=== PATIENT | female | born 1955 | race Caucasian/White ===

== ENCOUNTER 2017-03-05 08:07 | Emergency (ER) | payer OTHER ==
[~2017-03-05] VITALS: Ht 160 cm; Wt 72.0 kg
[~2017-03-05 08:07] MED LIST: MECL12.574 PO
[2017-03-05 08:11] VITALS: Ht 160 cm; Wt 72.0 kg
[2017-03-05] MEDS ORDERED: ONDANSETRON 4 MG INJ IV STA (08:22)
[2017-03-05] MEDS ORDERED: FAMOTIDINE 20 MG INJ IV STA (08:22)
[2017-03-05] MEDS ORDERED: SOD CHLORIDE 0.9% 1,000 ML IV STA (08:22)
[2017-03-05 09:05] LABS: ADD SCAN DIFF NO
[2017-03-05 09:08] LABS: BASOPHILS % 0.2 % (0.0-2.0); EOSINOPHILS # 0.1 10^3/ul (0.0-0.5); HEMOGLOBIN 15.1 g/dl (12.0-16.0); LYMPHOCYTES # 2.1 10^3/ul (0.8-2.9); LYMPHOCYTES % 21.9 % (15.0-51.0); MEAN CORPUSCULAR HEMOGLOBIN 30.3 pg (29.0-33.0); MEAN CORPUSCULAR HGB CONC 32.8 g/dl (32.0-37.0); MEAN CORPUSCULAR VOLUME 92.2 fl (82.0-101.0); MEAN PLATELET VOLUME 10.2 fl (7.4-10.4); MONOCYTE # 0.9 10^3/ul (0.3-0.9); MONOCYTES % 9.3 % (0.0-11.0); NEUTROPHIL # 6.3 10^3/ul (1.6-7.5); NEUTROPHILS % 67.3 % (39.0-77.0); PLATELET COUNT 180 10^3/UL (140-415); RED BLOOD COUNT 4.99 10^6/ul (4.20-5.40); RED CELL DISTRIBUTION WIDTH 12.5 % (11.5-14.5); WHITE BLOOD COUNT 9.4 10^3/ul (4.8-10.8)
[2017-03-05 09:10] LABS: ADD UMIC YES; URINE BILIRUBIN (Dip) NEGATIVE (NEGATIVE); URINE BLOOD (Dip) 2+ (NEGATIVE); URINE COLOR YELLOW (YELLOW); URINE KETONES (Dip) NEGATIVE (NEGATIVE); URINE LEUKOCYTE ESTERASE (Dip) NEGATIVE (NEGATIVE); URINE NITRITE (Dip) NEGATIVE (NEGATIVE); URINE TOTAL PROTEIN (Dip) 1+ (NEGATIVE); URINE UROBILINOGEN (Dip) 0.2 E.U./dL (0.1-1.0)
[2017-03-05 09:15] LABS: ALBUMIN 3.9 g/dl (3.3-4.9); CHLORIDE 99 mmol/L (97-110)
[2017-03-05 09:16] LABS: POTASSIUM 3.3 mmol/L (3.5-5.1); SODIUM 141 mmol/L (135-144)
[2017-03-05 09:18] LABS: ALANINE AMINOTRANSFERASE 36 IU/L (13-69); ALBUMIN/GLOBULIN RATIO 1.02; ALKALINE PHOSPHATASE 82 IU/L (42-121); ANION GAP 17 (8-16); ASPARTATE AMINO TRANSFERASE 25 IU/L (15-46); BILIRUBIN,INDIRECT 1.1 mg/dl (0-1.1); BILIRUBIN,TOTAL 1.1 mg/dl (0.2-1.3); BLOOD UREA NITROGEN 10 mg/dl (7-20); CARBON DIOXIDE 28 mmol/L (21-31); CREATININE 0.58 mg/dl (0.44-1.00); GLUCOSE 178 mg/dl (70-220); TOTAL PROTEIN 7.7 g/dl (6.1-8.1)
[2017-03-05 09:19] LABS: CALCIUM 8.1 mg/dl (8.4-10.2)
[2017-03-05 09:21] LABS: BACTERIA,URINE MANY; MUCUS,URINE MANY
--- NOTE | 2017-03-05 09:22 | RADRPT ---
PROCEDURE: CT Abdomen and Pelvis without contrast. CLINICAL INDICATION: Abdominal pain with nausea and vomiting. TECHNIQUE: CT scan of the abdomen and pelvis without contrast was performed on a multidetector hig h-resolution CT scanner. The patient was scanned without intravenous contrast. Coronal and sagittal reformatted images were obtained from the axial source images. Images were reviewed on a high-resol Pick1 PACS workstation. The total exam CTDI equals 10.75 mGy and the total exam DLP equals 606.76 mG y-cm. One or more of the following dose reduction techniques were used: Automated exposure control. Adjustment of the mA and/or kV according to patient size. Use of iterative reconstruction technique. COMPARISON: None FINDINGS: CT abdomen: The lung bases are clear. The heart size is normal, without pericardial thickening or effusion. Th e liver is normal in size and density without focal mass or intrahepatic biliary dilatation. The sp tyron is normal in size and homogeneous in density. The stomach is partially collapsed, but is gross ly unremarkable. The pancreas as visualized is normal. The gallbladder is surgically absent. There is no evidence for biliary dilatation. The adrenal glands are symmetric and normal. The kidneys a re symmetrically unremarkable as well. No renal calculus or obstructive uropathy or mass lesion is seen. The aorta is of normal caliber. Scattered aortoiliac vascular calcifications are present. There is n o retroperitoneal lymphadenopathy. The angeli hepatis region is clear. The bowel and mesentery, as visualized, are equally unremarkable. There is small hiatal hernia. CT pelvis: The small bowel loops situated within the pelvis are unremarkable. There is normal appendix. The pe lvic organs are normal. The pelvic sidewalls and inguinal regions are clear. The sigmoid colon and rectum are unremarkable. No mass, lymphadenopathy, or free fluid is seen. No acute inflammation i s seen. The surrounding osseous structures are remarkable for degenerative spondylosis of the spine . No osteolytic or osteoblastic lesion is detected. IMPRESSION: 1. No mass, lymphadenopathy, or focal acute inflammatory process is identified. 2. Normal appendix. 3. Status post cholecystectomy. No biliary ductal dilatation. 4. Scattered aortoiliac atherosclerosis. RPTAT: BB .Bisi Morales MD, MD Date Time Electronically viewed and signed by .Bisi Morales MD, on 03/05/2017 09:22 .O/
[2017-03-05] MEDS ORDERED: POTASSIUM CHLORIDE (SR) 20 MEQ TAB PO STA (09:28)
[2017-03-05 09:32] LABS: TROPONIN-I < 0.012 ng/ml (0.00-0.12)
--- NOTE | 2017-03-05 09:37 | ERD ---
ER Documentation Chief Complaint Date/Time DATE: 03/05/17 TIME: 09:34 Chief Complaint CAME IN VIA INTAKE DUE TO ABDOMINAL PAIN WITH DIARRHEA HPI This is a 61-year-old female presents to the emergency room for evaluation of abdominal cramping, and diarrhea for the past 24 hours. The patient states that her cramping started yesterday as well as diarrhea which she describes as watery. The patient denies any blood in her stool. She denies any recent travel, came to the ER for evaluation. She denies any aggravating or relieving factors for her symptoms ROS All systems reviewed and are negative except as per history of present illness. Medications Home Meds Active Scripts Meclizine Hcl* (Antivert*) 12.5 Mg Tab, 12.5 MG PO Q6H Y for dizziness, #10 TAB Prov:FLORI SHRESTHA MD 03/01/16 Allergies Allergies: Coded Allergies: sulfamethoxazole (Verified Allergy, Unknown, vomiting, 03/01/16) trimethoprim (Verified Allergy, Unknown, vomiting, 03/01/16) PMhx/Soc History of Surgery: Yes (GALLBLADDER, TUBAL LIGATION) Anesthesia Reaction: No Hx Neurological Disorder: No Hx Respiratory Disorders: No Hx Cardiac Disorders: Yes (HTN) Hx Psychiatric Problems: No Hx Miscellaneous Medical Probl: Yes (DIABETES, HIGH CHOLESTEROL) Hx Alcohol Use: No Hx Substance Use: No Hx Tobacco Use: Yes (1/2 PACK/DAY) Smoking Status: Current every day smoker Physical Exam Vitals Vital Signs Date Time Temp Pulse Resp B/P Pulse Ox O2 Delivery O2 Flow Rate FiO2 03/05/17 08:11 98.4 111 18 132/64 96 Physical Exam Const: No acute distress Head: Atraumatic Eyes: Normal Conjunctiva ENT: Normal External Ears, Nose and Mouth. Neck: Full range of motion..~ No meningismus. Resp: Clear to auscultation bilaterally Cardio: Regular rate and rhythm, no murmurs Abd: Soft, non tender, non distended. Normal bowel sounds Skin: No petechiae or rashes Back: No midline or flank tenderness Ext: No cyanosis, or edema Neur: Awake and alert Psych: Normal Mood and Affect Result Diagram: 03/05/17 0845 03/05/17 0845 Results 24 hrs Laboratory Tests Test 03/05/17 08:45 White Blood Count 9.410^3/ul Red Blood Count 4.9910^6/ul Hemoglobin 15.1g/dl Hematocrit 46.0% Mean Corpuscular Volume 92.2fl Mean Corpuscular Hemoglobin 30.3pg Mean Corpuscular Hemoglobin Concent 32.8g/dl Red Cell Distribution Width 12.5% Platelet Count 27246^3/UL Mean Platelet Volume 10.2fl Neutrophils % 67.3% Lymphocytes % 21.9% Monocytes % 9.3% Eosinophils % 1.0% Basophils % 0.2% Nucleated Red Blood Cells % 0.0/100WBC Neutrophils # 6.310^3/ul Lymphocytes # 2.110^3/ul Monocytes # 0.910^3/ul Eosinophils # 0.110^3/ul Basophils # 0.010^3/ul Nucleated Red Blood Cells # 0.010^3/ul Urine Color YELLOW Urine Clarity CLEAR Urine pH 6.0 Urine Specific Norton >=1.030 Urine Ketones NEGATIVE Urine Nitrite NEGATIVE Urine Bilirubin NEGATIVE Urine Urobilinogen 0.2 E.U./dL Urine Leukocyte Esterase NEGATIVE Urine Microscopic RBC 10-25/HPF Urine Microscopic WBC 5-10/HPF Urine Epithelial Cells FEW Urine Bacteria MANY Urine Mucus MANY Urine Hemoglobin 2+ Urine Glucose 0.1%% Urine Total Protein 1+ Sodium Level 141mmol/L Potassium Level 3.3mmol/L Chloride Level 99mmol/L Carbon Dioxide Level 28mmol/L Anion Gap 17 Blood Urea Nitrogen 10mg/dl Creatinine 0.58mg/dl Glucose Level 178mg/dl Calcium Level 8.1mg/dl Total Bilirubin 1.1mg/dl Direct Bilirubin 0.00mg/dl Indirect Bilirubin 1.1mg/dl Aspartate Amino Transf (AST/SGOT) 25IU/L Alanine Aminotransferase (ALT/SGPT) 36IU/L Alkaline Phosphatase 82IU/L Troponin I < 0.012ng/ml Total Protein 7.7g/dl Albumin 3.9g/dl Globulin 3.80g/dl Albumin/Globulin Ratio 1.02 Lipase 101U/L Current Medications Medications (Trade) Dose Ordered Sig/Stefany Route PRN Reason Start Time Stop Time Status Last Admin Dose Admin Sodium Chloride (NS) 1,000 ml @ 1,000 mls/hr Q1H STAT IV 03/05/17 08:22 03/05/17 09:21 DC 03/05/17 08:54 Ondansetron HCl (Zofran Inj) 4 mg ONCE STAT IV 03/05/17 08:22 03/05/17 08:25 DC 03/05/17 08:54 Famotidine (Pepcid Iv) 20 mg ONCE STAT IV 03/05/17 08:22 03/05/17 08:25 DC 03/05/17 08:54 Potassium Chloride (Klor-Con 20) 20 meq ONCE STAT PO 03/05/17 09:28 03/05/17 09:32 DC Procedures/MDM CT abdomen pelvis without: 1. No mass, lymphadenopathy, or focal acute inflammatory process is identified. 2. Normal appendix. 3. Status post cholecystectomy. No biliary ductal dilatation. 4. Scattered aortoiliac atherosclerosis. This 61-year-old female presents to the emergency room for evaluation of abdominal cramping and diarrhea for 1 days duration. When I evaluated this patient showed no peritoneal signs. She was in no acute distress. Lab work was obtained which shows a slightly decreased potassium. The patient was given p.o. potassium and tolerated p.o. challenge. CT of the abdomen and pelvis does not reveal any intra-abdominal pathology. This patient did receive Zofran and Pepcid and 1 L of fluid. I advised her that she is suffering from diarrhea and abdominal cramping is common with diarrhea. The patient states she is feeling better at this time and will be discharged home with instructions to follow-up with her primary care physician. Differential diagnoses entertained was broad with potential high acuity. Patient has been evaluated for appendicitis, cholecystitis, and other high risk medical and surgical causes of abdominal pain. Ultimately the patient's evaluation is nondiagnostic. Based on the patient's lack of risk factors, as well as the patient's clinical, laboratory, and imaging data, the patient appears to be low risk for these high risk causes of abdominal pain. Departure Diagnosis: Primary Impression: Diarrhea Additional Impressions: Abdominal cramping Hypokalemia Condition: Stable JULIA LEAL DO Mar 05, 2017 09:37
[2017-03-05 09:46] VITALS: BP 113/65; PULSE 65; RESP 17; TEMP 97
== END 2017-03-05 12:10 | disposition home or self-care (01) ==
LOC: E/R 08:07
DX: R19.7 Diarrhea, unspecified (principal); E87.6 Hypokalemia; I10 Essential (primary) hypertension; E11.9 Type 2 diabetes mellitus without complications; F17.210 Nicotine dependence, cigarettes, uncomplicated
CPT/HCPCS: 36415; 74176; 80053; 81001; 83690; 84484; 85025; 96374; 96375; J2405; J7030; Z7502; Z7610; 81003

== ENCOUNTER 2018-10-11 08:43 | Day surgery (SDC) | END 2018-10-11 18:25 | disposition home or self-care (01) ==

== ENCOUNTER 2018-10-25 18:11 | Emergency (ER) | payer MEDICARE, OTHER ==
[~2018-10-25] VITALS: Wt 68.9 kg
[~2018-10-25 18:11] MED LIST changes: +ATOR-2 PO; +CARV25TA79 PO; -MECL12.574 PO; +METF500T24 PO
[2018-10-25] MEDS ORDERED: HYDROCODONE/APAP (5/325) TAB PO ONE (21:00)
[2018-10-25 22:06] VITALS: BP 136/77; PULSE 77; RESP 18
--- NOTE | 2018-11-05 09:18 | ERD ---
ER Documentation Chief Complaint Chief Complaint bib self due to right hand pain s/p dressing change this afternoon HPI 53-year-old female status post ORIF repair for the a fracture in the right hand states that she just had surgery with couple days prior to being seen, patient had pins placed in her hand and the Have failed off. Patient presents for evaluation. States that her pain is moderate in severity ROS All systems reviewed and are negative except as per history of present illness. Medications Home Meds Reported Medications Atorvastatin* (Atorvastatin*) 80 Mg Tablet, 80 MG PO QHS, #30 TAB 10/11/18 Carvedilol* (Carvedilol*) 25 Mg Tablet, 25 MG PO BID, #60 TAB 10/11/18 Metformin Hcl* (Metformin Hcl*) 500 Mg Tablet, 500 MG PO WITH BREAKFAST DINNE, #60 TAB 10/11/18 Allergies Allergies: Coded Allergies: ibuprofen (Verified Allergy, Unknown, RASHES, 10/11/18) sulfamethoxazole (Verified Allergy, Unknown, vomiting, 10/11/18) trimethoprim (Verified Allergy, Unknown, vomiting, 10/11/18) PMhx/Soc History of Surgery: Yes (keila, tubal ligation) Anesthesia Reaction: No Hx Neurological Disorder: No Hx Respiratory Disorders: No Hx Cardiac Disorders: Yes (htn,high chol) Hx Psychiatric Problems: No Hx Miscellaneous Medical Probl: No Hx Alcohol Use: No Hx Substance Use: No Hx Tobacco Use: Yes Smoking Status: Former smoker Physical Exam Vitals Reviewed solving within normal limits l Physical Exam Const: No acute distress Head: Atraumatic Eyes: Normal Conjunctiva ENT: Normal External Ears, Nose and Mouth. Neck: Full range of motion. No meningismus. Resp: Clear to auscultation bilaterally Cardio: Regular rate and rhythm, no murmurs Abd: Soft, non tender, non distended. Normal bowel sounds Skin: No petechiae or rashes Back: No midline or flank tenderness Ext: No cyanosis, or edema Neur: Awake and alert Psych: Normal Mood and Affect Results 24 hrs Current Medications Medications Dose Sig/Stefany Start Time Status Last (Trade) Ordered Route PRN Stop Time Admin Dose Reason Admin 1 tab ONCE ONCE 10/25/18 DC 10/25/18 Acetaminophen PO 21:00 21:02 / 10/25/18 Hydrocodone 21:01 Bitart (Hamlin (5/325)) Procedures/MDM This is a 63-year-old female presenting for evaluation of surgical site from repair surgery of the fourth proximal phalange of in this past week. I have consulted her surgeon Dr. Lopez in which she states that it is okay that the caps of a 4 K wire has fell out. Patient was given Hamlin in the ED and discussed with her to follow-up with her surgeon tomorrow morning. She stable neurovascular intact to be discharged home. Postsurgical changes of percutaneous pinning of comminuted, intra-articular fourth proximal phalangeal fracture. Departure Diagnosis: Primary Impression: Encounter for wound re-check Condition: Stable Patient Instructions: Post Op Wound Check, Pain Referrals: DOCTOR,NOT ON STAFF (PCP) Additional Instructions: FOLLOW UP WITH DR.JENNIFER LOPEZ TOMORROW MORNING ERWIN ONOFRE PA-C Nov 05, 2018 09:18
== END 2018-10-25 22:07 | disposition home or self-care (01) ==
LOC: FTE 18:11
DX: Z48.01 Encounter for change or removal of surgical wound dressing (principal); I10 Essential (primary) hypertension; Z79.84 Long term (current) use of oral hypoglycemic drugs; Z87.891 Personal history of nicotine dependence